=== PATIENT | female | born 1990 | race Caucasian/White ===

== ENCOUNTER 2016-11-10 07:51 | Day surgery (SDC) | payer BC, OTHER ==
[2016-11-10] MEDS ORDERED: Lactated Ringers 1,000 ML IV SCH ×2 (08:00→10:45)
[2016-11-10] MEDS ORDERED: cefOXitin 1 GM in Premix Bag 1 BAG IV ONE (09:15)
[2016-11-10] MEDS ORDERED: Propofol 200 MG/20 ML SDV IV ONE (09:30)
[2016-11-10] MEDS ORDERED: fentaNYL 100 MCG/2 ML SDV IV ONE (09:30)
[2016-11-10] MEDS ORDERED: Ondansetron 4 MG/2 ML SDV IVPUSH ONE (09:30)
[2016-11-10] MEDS ORDERED: Ketorolac 30 MG/ML SDV IVPUSH ONE (09:30)
[2016-11-10] MEDS ORDERED: Midazolam 1 MG/ML 2 ML SDV IV ONE (09:30)
[2016-11-10] MEDS ORDERED: Neostigmine Methylsulfate 10 MG/10 ML MDV IVPUSH ONE (09:30)
[2016-11-10] MEDS ORDERED: Glycopyrrolate 0.2 MG/ML 5 ML MDV IV ONE (09:30)
[2016-11-10] MEDS ORDERED: Lactated Ringers 1,000 ML IV ONE (09:30)
[2016-11-10] MEDS ORDERED: Dexamethasone 4 MG/ML 5 ML MDV IVPUSH ONE (09:30)
[2016-11-10] MEDS ORDERED: Succinylcholine 200 MG/10 ML MDV IV ONE (09:30)
[2016-11-10] MEDS ORDERED: Rocuronium 100 MG/10 ML MDV IV ONE (09:30)
[2016-11-10] MEDS ORDERED: Lidocaine 2% with EPINEPHrine 1:200,000 20 ML SDV INJECT ONE (09:47)
[2016-11-10] MEDS ORDERED: Bupivacaine 0.5% 30 ML SDV INJECT ONE (09:47)
--- NOTE | 2016-11-10 10:33 | PCM.OPNOTE ---
- General Post-Op/Procedure Note Date of Surgery/Procedure: 11/10/16 Operative Procedure(s): lap cholecystectomy Findings: gallbladder and stones Pre Op Diagnosis: sx gallstones Post-Op Diagnosis: same Anesthesia Technique: General ET Tube, Local (7.5 ml 2 % lido with epi/0.5% buvipicaine) Primary Surgeon: Nathanael De La Cruz Anesthesia Provider: Hong Girard Pathology: gallbladder and contents Complications: None Condition: Good Free Text/Narrative:: see dictation
[2016-11-10] MEDS ORDERED: Acetaminophen/HYDROcodone 325-5 MG Tab PO PRN (10:36)
[2016-11-10] MEDS ORDERED: fentaNYL 100 MCG/2 ML SDV IVPUSH PRN (10:40)
[2016-11-10] MEDS ORDERED: Albuterol 0.083% 2.5 MG/3 ML Neb Soln NEB PRN (10:40)
[2016-11-10] MEDS ORDERED: Promethazine 25 MG/ML SDV IM PRN (10:40)
[2016-11-10] MEDS ORDERED: HYDROmorphone 2 MG/ML SDV IVPUSH PRN (10:40)
[2016-11-10] MEDS ORDERED: HYDROmorphone 2 MG/ML SDV IV PRN (10:40)
[2016-11-10 13:41] VITALS: BP 126/76
--- NOTE | 2016-11-10 18:19 | OR ---
DATE OF OPERATION: 11/10/2016 SURGEON: Nathanael De La Cruz MD PROCEDURE PERFORMED: Laparoscopic cholecystectomy. PREOPERATIVE DIAGNOSIS: Symptomatic gallstones without obstruction. POSTOPERATIVE DIAGNOSIS: Symptomatic gallstones without obstruction. INDICATIONS FOR PROCEDURE: This is a 25-year-old white female who is referred with a history of symptomatic cholelithiasis, she was offered and accepted same. INTRAOPERATIVE FINDINGS: Critical view was obtained. A total of 7.5 of 1:1 mixture of 2% lidocaine with epinephrine 0.5% bupivacaine was used to infiltrate our trocar sites. DESCRIPTION OF OPERATION: After an excellent general anesthetic was administered via endotracheal tube, the patient was prepped and draped in usual sterile manner. Local was infiltrated just below the umbilicus and a small vertical midline incision was made. Blunt dissection was carried out exposing the midline fascia. Two stay sutures of 0 Vicryl were placed on either side of the midline fascia, which was then elevated. The midline fascia was incised and the abdominal cavity was entered. A 10.5 mm Osmar trocar was inserted into the patient's abdomen after digital palpation and under direct visualization, 5 mm port was placed in the midline epigastrium as well as below the right costal margin to midclavicular anterior axillary lines. This was done by infiltrating with more local making stab incisions and inserting our trocars. The patient was then placed in reverse Trendelenburg position. The gallbladder was grasped and elevated. The infundibulum was grasped, careful blunt dissection was carried out exposing the cystic duct and cystic artery. After obtaining our critical view, two clips were placed proximally on the cystic duct and one distally on cystic duct, which was then transected. The process was repeated with 3 clips on the cystic artery, one distal, and the artery was transected as well. L-hook cautery dissection was carried out dissecting the gallbladder free from the gallbladder fossa. The specimen was delivered into the specimen bag and delivered out through the umbilicus. The gallbladder fossa was irrigated, bleeding was controlled with electrocautery, and the right upper quadrant was irrigated. The patient was flattened out. The trocars were removed under direct visualization. After assuring good hemostasis, pneumoperitoneum was released, and the 10.5 mm Osmar trocar was removed. The umbilical defect was closed with a [id number] 0 Vicryl and the 2 stay sutures were tied to each other. The subcu 4-0 Vicryl was used to approximate the skin. Steri-Strips were applied. Needle, sponge, and instrument counts were reported as correct. The patient was taken to recovery in good condition. /[id number] /MODL
== END 2016-11-10 13:30 | disposition home or self-care (01) ==
LOC: FB.SDS 07:51
PROVIDERS: ATTEND Surgery
DX: K80.10 Calculus of gallbladder with chronic cholecystitis without obstruction (principal); F41.9 Anxiety disorder, unspecified; F32.9 Major depressive disorder, single episode, unspecified; Z79.899 Other long term (current) drug therapy
CPT/HCPCS: 47562; 81025; 88304; A9270; J0330; J0694; J1100; J1170; J1885; J2250; J2405; J2704; J2710; J3010; J7120

== ENCOUNTER 2017-02-09 06:43 | Day surgery (SDC) | payer BC ==
[2017-02-09] MEDS ORDERED: Sodium Chloride 0.9% 10 ML Syringe FLUSH PRN (06:45)
[2017-02-09] MEDS ORDERED: Lactated Ringers 1,000 ML IV SCH (06:45)
[2017-02-09] MEDS ORDERED: Propofol 200 MG/20 ML SDV IV ONE (08:00)
[2017-02-09] MEDS ORDERED: Midazolam 1 MG/ML 2 ML SDV IV ONE (08:00)
--- NOTE | 2017-02-09 08:27 | PCM.OPNOTE ---
- General Post-Op/Procedure Note Date of Surgery/Procedure: 02/09/17 Operative Procedure(s): c scope Findings: internal hemorrhoids Pre Op Diagnosis: bleeding per rectum Post-Op Diagnosis: internal hemorrhoids Anesthesia Technique: MAC Primary Surgeon: Nathanael De La Cruz Anesthesia Provider: Halie Mendenhall Pathology: none Complications: None Condition: Good Free Text/Narrative:: see dictation
[2017-02-09 09:12] VITALS: BP 110/74
--- NOTE | 2017-02-09 10:08 | OR ---
DATE OF OPERATION: 02/09/2017 SURGEON: Nathanael De La Cruz MD PROCEDURE PERFORMED: Colonoscopy. PREOPERATIVE DIAGNOSIS: Bleeding per rectum. POSTOPERATIVE DIAGNOSIS: Hemorrhoids. INDICATIONS FOR PROCEDURE: This is a 26-year-old white female who has had a history of intermittent bleeding per rectum. She was offered and accepted a colonoscopy. She also has a family history of colon cancer. DESCRIPTION OF OPERATION: After an excellent IV sedation was administered, digital rectal exam was performed. No marked abnormality was noted. The flexible colonoscope was inserted and advanced to the cecum without difficulty. The prep was excellent. The following findings were noted. Ascending colon, unremarkable. Transverse colon, unremarkable. Descending colon, unremarkable. Sigmoid, unremarkable. Rectum and anus; on retroflexion of the scope, there are evidence of internal hemorrhoids which appears to be the cause of her bleeding. Colon was deflated and the scope was removed. The patient tolerated the procedure well. /[id number] KATHY/VLAD
--- NOTE | 2017-02-09 10:08 | PREOP ---
ADMISSION DATE: 02/09/2017 CHIEF COMPLAINT: Bleeding per rectum. HISTORY OF PRESENT ILLNESS: This is a 26-year-old white female, who has a history of blood in her stool. Last episode was in October, and since, she is essentially asymptomatic. Denies any pain, change in bowel habits, etc. She has been offered a colonoscopy as part of a workup. MEDICATIONS: Include: 1. Motrin 600 mg on a p.r.n. basis. 2. Norgestimate and ethinyl estradiol 1 tablet by mouth one time per day. ALLERGIES: She has no known allergies. PAST MEDICAL HISTORY: Significant for anxiety and depression and an irregular menstrual cycle. PAST SURGICAL HISTORY: Significant for laparoscopic cholecystectomy. FAMILY HISTORY: Significant for cancer of the colon; it was diagnosed in her father at the age of 53. SOCIAL HISTORY: She is single. She has no children. Does not smoke. Does not drink. REVIEW OF SYSTEMS: CONSTITUTIONAL: Negative. ENT, EYES, RESPIRATORY, CARDIOVASCULAR were all negative. GASTROINTESTINAL: Positive for bleeding per rectum. MUSCULOSKELETAL, SKIN and NEUROLOGIC were negative. PHYSICAL EXAMINATION: GENERAL: This is a well-developed, well-nourished white female, appearing in no acute distress. HEENT: Grossly within normal limits. LUNGS: Clear to auscultation. HEART: Had a regular rate and rhythm. ABDOMEN: Soft and nontender. ASSESSMENT: History of rectal bleeding. PLAN: Colonoscopy. INFORMED CONSENT: Procedure and risks were explained to the patient to include bleeding, perforation, infection. The patient expresses understanding, and she has asked us to proceed. /[id number] KATHY/VLAD VANESSA
== END 2017-02-09 09:11 | disposition home or self-care (01) ==
LOC: FB.SDS 06:43
PROVIDERS: ATTEND Surgery
DX: K64.8 Other hemorrhoids (principal); F41.9 Anxiety disorder, unspecified; F32.9 Major depressive disorder, single episode, unspecified; N92.6 Irregular menstruation, unspecified; Z80.0 Family history of malignant neoplasm of digestive organs; Z90.49 Acquired absence of other specified parts of digestive tract
CPT/HCPCS: 45378; 81025; J2250; J2704; J7120

== ENCOUNTER 2021-11-13 14:59 | Emergency (ER) | payer BC ==
[2021-11-13 15:45] LABS: ESTIMATED GFR 89 mL/min (>60)
[2021-11-13] MEDS ORDERED: cefTRIAXone 1 GM Vial IM ONE (16:30)
[2021-11-13 21:26] VITALS: BP 101/73; PULSE 65
== END 2021-11-13 17:08 | disposition home or self-care (01) ==
LOC: FB.ED 14:59
DX: N39.0 Urinary tract infection, site not specified (principal); K21.9 Gastro-esophageal reflux disease without esophagitis; F17.210 Nicotine dependence, cigarettes, uncomplicated; Z86.16 Personal history of COVID-19
CPT/HCPCS: 36415; 80053; 81001; 81025; 85025; 87086; 87186; 96372; 99284; J0696

== ENCOUNTER 2024-06-10 16:59 | Emergency (ER) | payer BC ==
[2024-06-10] MEDS ORDERED: Sodium Chloride 0.9% 10 ML Syringe FLUSH PRN (17:08)
[2024-06-10 17:33] LABS: BASOPHILS PERCENT AUTO 0.6 % (0.2-1.5); EOSINOPHILS PERCENT AUTO 0.3 % (0.6-8.1); HEMOGLOBIN 14.3 g/dL (11.4-15.5); LYMPHOCYTES PERCENT AUTO 26.4 % (18.4-52.1); MEAN CORPUSCULAR HEMOGLOBIN 29.9 pg (23.9-33.9); MEAN CORPUSCULAR VOLUME 85.4 fL (76.7-100.5); MEAN PLATELET VOLUME 8.3 fL (7.1-12.4); MONOCYTES ABSOLUTE AUTO 0.3 x10-3/uL (0.3-1.0); MONOCYTES PERCENT AUTO 4.3 % (4.4-15.7); NEUTROPHILS ABSOLUTE AUTO 5.2 x10-3/uL (1.5-6.3); NEUTROPHILS PERCENT AUTO 68.4 % (30.8-76.2); PLATELET COUNT,PLT 292 x10(3)uL (151-488); RED CELL DISTRIBUTION WIDTH 13.2 % (12.3-16.5); WHITE BLOOD CELL COUNT,WBC 7.6 x10-3/uL (3.0-10.3)
[2024-06-10 17:36] LABS: BLOOD UREA NITROGEN,BUN 8 mg/dL (7-18); CALCIUM 8.7 mg/dL (8.6-10.2); CARBON DIOXIDE,CO2 26 mmol/L (21-32); CHLORIDE,CL 102 mmol/L (100-110); CREATININE 0.8 mg/dL (0.55-1.02); EST CRCL DRUG DOSING (CG) 101.84 mL/min; ESTIMATED GFR 100 mL/min (>60); GLUCOSE RANDOM 98 mg/dL (80-116); POTASSIUM,K 4.1 mmol/L (3.5-5.3); SODIUM,NA 138 mmol/L (135-145)
[2024-06-10 17:38] LABS: AMPHETAMINES SCREEN, URINE POSITIVE (NEGATIVE); BARBITURATE SCREEN,URINE NEGATIVE (NEGATIVE); BENZODIAZEPINES SCREEN,URINE POSITIVE (NEGATIVE); METHADONE SCREEN, URINE NEGATIVE (NEGATIVE); METHAMPHETAMINE SCREEN, URINE POSITIVE (NEGATIVE); OXYCODONE SCREEN,URINE NEGATIVE (NEGATIVE); THC SCREEN,URINE POSITIVE (NEGATIVE)
[2024-06-10 17:39] LABS: BUPRENORPHINE SCREEN,URINE NEGATIVE (NEGATIVE)
[2024-06-10 17:47] LABS: A/G RATIO 1.2; ALANINE AMINOTRANSFERASE,ALT 17 U/L (12-36); ALBUMIN 3.9 g/dL (3.5-5.2); ALKALINE PHOSPHATASE 84 IU/L (56-112); ASPARTATE AMNIOTRANSFERASE,AST 12 IU/L (5-25); BILIRUBIN TOTAL 0.5 mg/dL (0.1-1.3); PROTEIN TOTAL,TP 7.1 g/dL (6.0-8.0)
[2024-06-10 18:18] VITALS: BP 107/83; PULSE 88
== END 2024-06-10 18:15 | disposition home or self-care (01) ==
LOC: FB.ED 16:59
DX: R40.4 Transient alteration of awareness (principal); F15.10 Other stimulant abuse, uncomplicated; F12.10 Cannabis abuse, uncomplicated; F17.210 Nicotine dependence, cigarettes, uncomplicated; Z79.899 Other long term (current) drug therapy; Z86.16 Personal history of COVID-19
CPT/HCPCS: 36415; 70450; 80053; 80307; 85025; 99284; 99285